=== PATIENT | female | born 1960 | race Caucasian/White ===

== ENCOUNTER 2016-06-25 18:26 | Emergency (ER) | payer BC ==
[~2016-06-25] VITALS: Ht 157.5 cm; Wt 68.2 kg
[~2016-06-25 18:26] MED LIST: ALBU8I INH; AZIT250T43 PO; HYCO5UDC PO; MUCI600T PO
[2016-06-25 18:39] VITALS: BP 173/88; PULSE 77; RESP 17; TEMP 98.1; O2SAT 97
[2016-06-25 19:43] LABS: AUTOMATED NEUTROPHIL # 3.1 TH/MM3 (1.8-7.7); BASOPHIL # 0.1 TH/MM3 (0-0.2); BASOPHIL % 0.8 % (0.0-2.0); EOSINOPHIL # 0.4 TH/MM3 (0-0.4); EOSINOPHIL % 5.7 % (0.0-4.0); HEMATOCRIT 38.8 % (35.0-46.0); HEMO FLAGS DIFF FINAL; LYMPH % 41.2 % (9.0-44.0); LYMPHOCYTE # 2.9 TH/MM3 (1.0-4.8); MEAN CELL VOLUME 91.7 FL (80.0-100.0); MEAN CORPUSCULAR HEMOGLOBIN 31.8 PG (27.0-34.0); MEAN CORPUSCULAR HGB CONC 34.7 % (32.0-36.0); MONO % 8.2 % (0.0-8.0); NEUT % 44.1 % (16.0-70.0); PLATELET COUNT 240 TH/MM3 (150-450); RED BLOOD COUNT 4.23 MIL/MM3 (4.00-5.30); RED CELL DISTRIBUTION WIDTH 12.8 % (11.6-17.2); WHITE BLOOD COUNT 6.9 TH/MM3 (4.0-11.0)
[2016-06-25 20:08] LABS: ANION GAP 8 MEQ/L (5-15); BICARBONATE 28.5 MEQ/L (21.0-32.0); BLOOD UREA NITROGEN 12 MG/DL (7-18); CHLORIDE 105 MEQ/L (98-107); GLOMERULAR FILTRATION RATE 58 ML/MIN (>89); POTASSIUM 3.9 MEQ/L (3.5-5.1); SODIUM (NA) 141 MEQ/L (136-145)
[2016-06-25 20:13] LABS: CREATINE KINASE 210 U/L (26-192)
[2016-06-25 20:25] LABS: CKMB 1.8 NG/ML (0.5-3.6)
--- NOTE | 2016-06-28 22:53 | EKG ---
Date Performed: 06/25/2016 Time Performed: 18:34:58 PTAGE: 56 years EKG: Sinus rhythm WITH FIRST DEGREE AV BLOCK POSSIBLE LEFT ATRIAL ENLARGEMENT LOW QRS VOLTAGE IN PRECORDIAL LEADS POSS IBLE ANTERIOR MYOCARDIAL INFARCTION ABNORMAL ECG INTERPRETATION BASED ON A DEFAULT AGE OF 40 YEARS PREVIOUS TRACING : 06/25/2016 18.32 Compared to prior tracing no significant change DOCTOR: Jean Armendariz Interpretating Date/Time 06/28/2016 22:52:19
== END 2016-06-25 19:16 | disposition left against medical advice (07) ==
LOC: NETRI 18:26
DX: R07.9 Chest pain, unspecified (principal); I44.0 Atrioventricular block, first degree
CPT/HCPCS: 80048; 82550; 82552; 84484; 85025; 93005; 99281